=== PATIENT | male | born 1985 | race Two or more races ===

== ENCOUNTER 2020-04-26 11:52 | Emergency (ER) | payer SELFPAY ==
[~2020-04-26] VITALS: Ht 172.7 cm; Wt 71.7 kg
[2020-04-26] MEDS ORDERED: MORPHINE SULF INJ 2 MG/ML SYRINGE 1ML IM ONE (14:00)
[2020-04-26] MEDS ORDERED: ONDANSETRON ODT 4 MG TAB PO ONE (14:00)
[2020-04-26] MEDS ORDERED: MORPHINE SULF INJ 2 MG/ML SYRINGE 1ML IV ONE (15:15)
[2020-04-26] MEDS ORDERED: ONDANSETRON HCL 4 MG/2 ML VIAL IV ONE (15:15)
[2020-04-26] MEDS ORDERED: HYDROmorphone HCL 2 MG/ML VL IV ONE ×2 (16:45→20:00)
[2020-04-26 20:13] VITALS: BP 130/76
== END 2020-04-26 21:08 | disposition designated cancer center or children's hospital (05) ==
LOC: ER 11:52
DX: S92.121A Displaced fracture of body of right talus, initial encounter for closed fracture (principal); S93.04XA Dislocation of right ankle joint, initial encounter; S62.024A Nondisplaced fracture of middle third of navicular [scaphoid] bone of right wrist, initial encounter for closed fracture; S63.094A Other dislocation of right wrist and hand, initial encounter; V86.56XA Driver of dirt bike or motor/cross bike injured in nontraffic accident, initial encounter; Y93.89 Activity, other specified; Y92.89 Other specified places as the place of occurrence of the external cause; Y99.8 Other external cause status
CPT/HCPCS: 29125; 73100; 73610; 96372; 96374; 96375; 96376; 99285; J1170; J2270; J2405; Q0162